=== PATIENT | male | born 1975 | race Caucasian/White ===

== ENCOUNTER 2022-09-27 11:54 | Outpatient (CLI) | payer BC | END 2022-09-27 11:55 | disposition home or self-care (01) | LOC: TBSIIMAG 11:54 | PROVIDERS: ATTEND Orthopaedic Surgery | DX: M23.91 Unspecified internal derangement of right knee (principal) ==

== ENCOUNTER 2023-03-03 15:10 | Outpatient (CLI) | payer BC | END 2023-03-03 15:11 | disposition home or self-care (01) | LOC: BICULT 15:10 | PROVIDERS: ATTEND Internal Medicine Nephrology | DX: N18.30 Chronic kidney disease, stage 3 unspecified (principal) | CPT/HCPCS: 76770 ==